=== PATIENT | male | born 1970 | race Caucasian/White ===

== ENCOUNTER 2019-06-09 08:26 | Day surgery (SDC) | payer MEDICAID ==
[2019-06-09] MEDS ORDERED: PROPOFOL 10 MG/ML VIAL IV ONE (08:27)
[2019-06-09] MEDS ORDERED: LIDOCAINE 2% MDV (20MG/ML) 20ML VIAL IV ONE (08:27)
--- NOTE | 2019-06-11 10:42 | Operative Note ---
OPERATION: COLONOSCOPY to the cecum with electrocautery snare polypectomy. INDICATION: Episodic bright red rectal bleeding. The patient presents today for further evaluation. ANESTHESIA: Intravenous sedation was administered by the department of anesthesiology and included Diprivan titrated to effect. PROCEDURE: Following informed consent from this alert individual including a discussion of the risks and benefits of the procedure and an opportunity for the patient to ask questions, the patient was in the left lateral decubitus position. A digital rectal examination was performed. No abnormalities were noted. Following this, the Olympus [id number] video colonoscope was inserted into the rectum without resistance. The rectal mucosa had a normal appearance with normal folds and distensibility. The sigmoid colon was cannulated and demonstrated a 1.5 cm polyp just proximal to the rectosigmoid junction at approximately 18 cm from the anal verge. The polyp was initially traversed and the colonoscope was advanced farther through the colon to the level of the cecum. The cecum was well identified by noting the appendiceal orifice and ileocecal valve. Overall, the colon preparation was good. From the base of the cecum, the colonoscope was then withdrawn. No changes were noted throughout the right colon and descending colon. The sigmoid colon had a few scattered diverticula noted which were small in size. The polyp was then again located at 18 cm from the anal verge and removed in total with application of electrocautery snare. The polyp was suctioned on the tip of the colonoscope and withdrawn, placed into a specimen container. The endoscope was then advanced back to the polypectomy site. There was a white eschar with no bleeding. From this patient, the colonoscope was then withdrawn back into the rectum. Retroflexion in the rectum revealed internal hemorrhoids which were small in size. The endoscope was straightened and withdrawn. The patient tolerated the procedure well and was returned to the recovery area in stable condition. IMPRESSION: 1. A 1.4 cm distal sigmoid polyp removed with electrocautery snare polypectomy. It was somewhat pedunculated. 2. Sigmoid diverticulosis, mild. 3. Small internal hemorrhoids. RECOMMENDATIONS: Further recommendations will be forthcoming pending results of pathology obtained today. followup will also be with Reyna Fragoso, nurse practitioner. As always, thank you for allowing me to participate in the care of your patient. VERNELL
== END 2019-06-09 10:25 | disposition home or self-care (01) ==
LOC: HOP 08:26
PROVIDERS: ATTEND Internal Medicine Gastroenterology
DX: K92.1 Melena (principal); D12.5 Benign neoplasm of sigmoid colon; K57.30 Diverticulosis of large intestine without perforation or abscess without bleeding; K64.8 Other hemorrhoids

== ENCOUNTER 2019-08-21 12:48 | Emergency (ER) | payer MEDICAID ==
--- NOTE | 2019-08-21 13:07 | Emergency Department Record ---
History of Present Illness - General Stated Complaint: POSS BRONCHITIS, COUGH,HEADACHE Time Seen by Provider: 08/21/19 13:00 Source: Patient Mode of Arrival: Ambulatory Limitations: No limitations - History of Present Illness Initial Comments: The patient is here with a cough and congestion for a week. He has felt feverish but has not taken his temp. He also has had some sputum production but denies any Cp, SOB, DELL or voice changes. MD Complaint: Cough Onset/Timin -: Week(s) - Related Data Previous Rx's Medication Instructions Recorded Albuterol Sulfate [Proair Hfa] 2 puff IH QID PRN #1 inhaler 08/21/19 Azithromycin [Zithromax] 250 mg PO ASDIR #6 tab 08/21/19 Allergies Allergy/AdvReac Type Severity Reaction Status Date / Time Penicillins Allergy Unknown PT UNSURE Unverified 07/07/19 07:48 OF REACTION Sulfa (Sulfonamide Allergy Unknown PT UNSURE Unverified 07/07/19 07:48 Antibiotics) OF REACTION sulfamethoxazole Allergy RASH Unverified 08/21/19 13:09 [From Bactrim] trimethoprim [From Bactrim] Allergy RASH Unverified 08/21/19 13:09 Review of Systems Constitutional: Reports: Malaise. Denies: Chills, Fever Eyes: Denies: Eye discharge ENT: Reports: Congestion Respiratory: Reports: Cough. Denies: Dyspnea Past Medical History - SOCIAL HISTORY Smoking Status: Never smoker - RESPIRATORY Hx Respiratory Disorders: No - CARDIOVASCULAR Hx Cardio Disorders: Yes Hx Chest Pain: Yes (stress test; all clear) - NEURO Hx Neuro Disorders: Yes Hx Headaches: Yes Hx of Migraines: Yes - GI Hx GI Disorders: Yes Hx Reflux: Yes - Hx Genitourinary Disorders: Yes Hx Kidney Stones: Yes (5 ago yrs) Hx UTI: Yes - ENDOCRINE Hx Endocrine Disorders: No - MUSCULOSKELETAL Hx Musculoskeletal Disorders: Yes - PSYCH Hx Psych Problems: Yes Hx Anxiety: Yes Hx Depression: Yes - HEMATOLOGY/ONCOLOGY Hx Hematology/Oncology Disorders: No Family Medical History Hx Cancer: Grandparents *Cancer Comment: lung Hx Heart Disease: Father Hx Kidney Disease: Father *Kidney Comment: uncle;; Hx Stroke: Father Physical Exam - General General Appearance: Alert, Oriented x3, Cooperative, No acute distress - Head Head exam: Atraumatic, Normocephalic, Normal inspection - Eye Eye exam: Normal appearance, PERRL - ENT Throat exam: Normal inspection. negative: Tonsillar erythema, Tonsillar exudate - Neck Neck exam: Normal inspection, Full ROM. negative: Tenderness - Respiratory Respiratory exam: Normal lung sounds bilaterally. negative: Respiratory distress - Cardiovascular Cardiovascular Exam: Regular rate, Normal rhythm, Normal heart sounds - GI/Abdominal GI/Abdominal exam: Soft, Normal bowel sounds. negative: Tenderness - Extremities Extremities exam: Normal inspection, Full ROM, Normal capillary refill. negative: Tenderness - Neurological Neurological exam: Alert. negative: Motor sensory deficit Course - Reevaluation(s) Reevaluation #1: I did explain to the patient that he most likely has a viral URI but due to the DMII and the fact he has had this for a week we will place him on a Zpak. 08/21/19 13:05 Disposition Disposition: Discharge Clinical Impression: Bronchitis Disposition: Home, Self-Care Condition: (2) Stable Instructions: Acute Bronchitis (ED) Additional Instructions: Please take the Zpak and Albuterol as directed and please see your doctor if not better in 4 days. Return to the ER for any worsening issues. Prescriptions: Albuterol Sulfate [Proair Hfa] 2 puff IH QID PRN #1 inhaler PRN Reason: Cough And Difficulty Breathing Azithromycin [Zithromax] 250 mg PO ASDIR #6 tab Forms: Patient Portal Access Time of Disposition: 13:07 Quality - Quality Measures Quality Measures: N/A - Blood Pressure Screening View Details: Yes Does Patient Have Any of the Following: Active Dx of HTN Blood Pressure Classification: Hypertensive Reading Systolic Measurement: 130 Diastolic Measurement: 93 Screening for High Blood Pressure: Patient Exclusion, Hx of HTN [G9744]
== END 2019-08-21 13:21 | disposition home or self-care (01) ==
LOC: ER 12:48
DX: J20.9 Acute bronchitis, unspecified (principal); I10 Essential (primary) hypertension
CPT/HCPCS: 99283